=== PATIENT | male | born 1960 | race Caucasian/White ===

== ENCOUNTER 2018-04-14 17:58 | Outpatient (CLI) | payer BC | END 2018-04-14 17:59 | disposition home or self-care (01) | LOC: C.SLEEP 17:58 ==

== ENCOUNTER 2018-05-03 18:14 | Outpatient (CLI) | payer BC | END 2018-05-03 18:15 | disposition home or self-care (01) | LOC: C.SLEEP 18:15 | DX: G47.33 Obstructive sleep apnea (adult) (pediatric) (principal) ==